=== PATIENT | male | born 1950 | race Caucasian/White ===

== ENCOUNTER 2017-08-17 12:50 | Emergency (ER) | payer OTHER, MEDICARE ==
[2017-08-17 12:59] VITALS: BP 180/112
[2017-08-17] MEDS ORDERED: DOXYcycline CAP(*) 100 MG PO ONE (13:09)
--- NOTE | 2017-08-17 13:36 | UC ---
General HPI - HPI Summary HPI Summary: TICK FOUND IN RIGHT ABDOMEN TODAY, BELIEVES IT HAS BEEN THERE SINCE YESTERDAY. NO FEVER. NO JOINT PAIN. NO HEDACHE. NO WEAKNESS. - History of Current Complaint Chief Complaint: Susie Stated Complaint: TICK Time Seen by Provider: 08/17/17 13:01 Hx Obtained From: Patient Onset/Duration: Gradual Onset, Lasting Hours Onset Severity: Mild Current Severity: Mild Pain Intensity: 0 Associated Signs & Symptoms: Negative: Abdominal Pain, Back Pain, Cough, Dizziness, Edema, Fever, Headache, SOB, Trauma - Allergy/Home Medications Allergies/Adverse Reactions: Allergies Allergy/AdvReac Type Severity Reaction Status Date / Time No Known Allergies Allergy Verified 09/06/15 13:12 Home Medications: Home Medications Donepezil Hydrochloride [Donepezil HCl] 5 mg PO 08/17/17 [History] PMH/Surg Hx/FS Hx/Imm Hx Previously Healthy: Yes - Surgical History Surgical History: Yes Surgery Procedure, Year, and Place: deep brain stimulation 02/2014 - Family History Known Family History: Negative: Blood Disorder - Social History Occupation: Retired Lives: With Family Alcohol Use: Occasionally Alcohol Amount: 3 GLASSES WINE/week Substance Use Type: None Smoking Status (MU): Never Smoked Tobacco - Immunization History Most Recent Tetanus Shot: 2013 Review of Systems Constitutional: Negative Skin: Rash Eyes: Negative ENT: Negative Respiratory: Negative Cardiovascular: Negative Gastrointestinal: Negative Genitourinary: Negative Motor: Negative Neurovascular: Negative Musculoskeletal: Negative Neurological: Negative Psychological: Negative Is Patient Immunocompromised?: No All Other Systems Reviewed And Are Negative: Yes Physical Exam Triage Information Reviewed: Yes Appearance: Well-Appearing, No Pain Distress, Well-Nourished Vital Signs: Initial Vital Signs Temp 98.0 F 08/17/17 12:56 Pulse 75 08/17/17 12:56 Resp 18 08/17/17 12:56 BP 180/112 08/17/17 12:56 Pulse Ox 100 08/17/17 12:56 Vital Signs Reviewed: Yes Eye Exam: Normal ENT Exam: Normal Dental Exam: Normal Neck exam: Normal Respiratory Exam: Normal Respiratory: Positive: Chest non-tender, Lungs clear, Normal breath sounds, No respiratory distress Cardiovascular Exam: Normal Cardiovascular: Positive: RRR, No Murmur, Pulses Normal Abdominal Exam: Normal Musculoskeletal Exam: Normal Neurological Exam: Normal Psychological Exam: Normal Skin: Positive: Other - TICK REMOVED FROM RIGHT ABDOMEN BY ROHIT, USING TICK TWISTERS. 0.3CM X 0.3 CM ERRYTHEMATOUS AREA WHERE TICK HAD BEEN EMBEDDED. Course/Dx - Differential Dx - Multi-Symptom Differential Diagnoses: Metabolic Abnormality, Sepsis Provider Diagnoses: TICK REMOVAL RIGHT ABDOMEN; TICK BITE PROPHYLAXIS. Discharge - Discharge Plan Condition: Stable Disposition: HOME Patient Education Materials: Lyme Disease (ED), Tick Bite (ED) Referrals: Jacob Richardson MD [Primary Care Provider] - Additional Instructions: TODAY YOUR BLOOD PRESSURE ON INTAKE WAS 180/112. PLEASE CONSULT YOUR PRIMARY CARE PHYSICIAN NEXT WEEK FOR EVALUATION OF THIS CONCERN.
== END 2017-08-17 13:23 | disposition home or self-care (01) ==
LOC: UCEAST 12:50
DX: S30.861A Insect bite (nonvenomous) of abdominal wall, initial encounter (principal); W57.XXXA Bitten or stung by nonvenomous insect and other nonvenomous arthropods, initial encounter; Y92.9 Unspecified place or not applicable
CPT/HCPCS: 99211; A9270-GY; G0463

== ENCOUNTER 2018-06-22 16:57 | Emergency (ER) | payer MEDICARE, OTHER ==
[2018-06-22] MEDS ORDERED: Acetaminophen TAB* 325 MG PO ONE (17:48)
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
[2018-06-22] MEDS ORDERED: Lisinopril TAB* 5 MG PO ONE (19:03)
[2018-06-22 19:53] VITALS: BP 165/109
--- NOTE | 2018-06-23 07:33 | RAD ---
INDICATION: Right clavicular pain /deformity COMPARISON: None TECHNIQUE: AP views were obtained. FINDINGS: There is a midshaft clavicular fracture with 60 degrees of angular deformity with the fracture apex directed cephalad. There are no other fractures. IMPRESSION: ANGULATED MID SHAFT CLAVICULAR FRACTURE. R0
--- NOTE | 2018-06-23 07:35 | RAD ---
INDICATION: Fall. Right arm pain COMPARISON: None TECHNIQUE: AP and lateral views were obtained. FINDINGS: The bony structures, joint spaces, and soft tissues are normal for age. IMPRESSION: NO ACUTE BONY FINDINGS. R0
== END 2018-06-22 19:50 | disposition home or self-care (01) ==
LOC: ED 16:57
DX: S42.021A Displaced fracture of shaft of right clavicle, initial encounter for closed fracture (principal); V19.9XXA Pedal cyclist (driver) (passenger) injured in unspecified traffic accident, initial encounter; Y93.55 Activity, bike riding; Y92.9 Unspecified place or not applicable
CPT/HCPCS: 99282; A9270-GY

== ENCOUNTER 2018-07-08 08:54 | Day surgery (SDC) | payer MEDICARE ==
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
[~2018-07-08 08:54] MED LIST: Buffered Lidocaine 0.9% SYRIN* 5 ML/SYR SYRINGE INTRADERM ONE; Dexamethasone IV* 4 MG/ML 1 ML (4 MG) IV SLOW PU ONE; Famotidine IV* 10 MG/ML 2 ML (20 mg) IV ONE
[2018-07-08] MEDS ORDERED: Famotidine IV* 10 MG/ML 2 ML (20 mg) ONE (09:06)
[2018-07-08] MEDS ORDERED: Dexamethasone IV* 4 MG/ML 1 ML (4 MG) ONE (09:06)
[2018-07-08] MEDS ORDERED: ceFAZolin 2 GM in NS PREMIX(*) 2 GM/100 ML BAG IVPB ONE (09:07)
[2018-07-08] MEDS ORDERED: fentaNYL* 50 MCG/ML 2 ML VIAL (100 MCG VIAL) IV PRN (09:30)
[2018-07-08] MEDS ORDERED: HYDROcodone/ACETAMIN 5-325 MG* 1 TAB PO PRN (09:30)
[2018-07-08] MEDS ORDERED: oxyCODONE/Acetamin 5/325 MG* TAB PO PRN (09:30)
[2018-07-08] MEDS ORDERED: Naloxone* 0.4 MG/ML 1 ML VIAL IV PRN (09:30)
[2018-07-08] MEDS ORDERED: Propofol* 10 MG/ML 20 ML BTL IV PUSH ONE (09:32)
[2018-07-08] MEDS ORDERED: Lidocaine 2% PF * 5 ML VIAL ONE (09:32)
[2018-07-08] MEDS ORDERED: Mivacurium Chloride* 20 MG/10 ML VIAL IV ONE (09:32)
[2018-07-08] MEDS ORDERED: fentaNYL* 50 MCG/ML 2 ML VIAL (100 MCG VIAL) ONE ×2 (09:46→10:44)
[2018-07-08] MEDS ORDERED: Bupivacaine 0.5% W/EPI SDV* 30 ML VIAL ONE (09:57)
[2018-07-08] MEDS ORDERED: Ketorolac INJ* 30 MG/ML 1 ML VIAL ONE (10:42)
[2018-07-08] MEDS ORDERED: Labetalol IV* 5 MG/ML 20 ML VIAL ONE (10:52)
[2018-07-08] MEDS ORDERED: Ondansetron INJ* 2 MG/ML VIAL ONE (11:08)
[2018-07-08 13:44] VITALS: BP 154/91
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
== END 2018-07-08 13:44 | disposition home or self-care (01) ==
LOC: OREAST 08:54
PROVIDERS: ATTEND Orthopaedic Surgery
DX: S42.021A Displaced fracture of shaft of right clavicle, initial encounter for closed fracture (principal); G20 Parkinson's disease; Z85.828 Personal history of other malignant neoplasm of skin; V18.0XXA Pedal cycle driver injured in noncollision transport accident in nontraffic accident, initial encounter; Y92.008 Other place in unspecified non-institutional (private) residence as the place of occurrence of the external cause
CPT/HCPCS: C1713; C1776; J0690; J1100; J1885; J2405; J2704; J3010

== ENCOUNTER 2020-01-13 09:47 | Emergency (ER) | payer MEDICARE ==
--- NOTE | 2020-01-13 10:25 | ED ---
Complex/Multi-Sys Presentation - HPI Summary HPI Summary: 69 year old M with hx Parkinson's and hypertension arriving via EMS to [facility] complains of sharp left rib pain rated 2/10 in severity that woke him from his sleep at 0200 this morning. No recent fall/trauma/injury. No hx similar symptoms. No hx chest pain. Patient denies chest pain, shortness of breath, cough. Symptoms aggravated by deep inspiration. Symptoms alleviated by nothing. He took Pepcid and aspirin prior to arrival. Medications reviewed. Allergies noted. FHx hypertension. - History Of Current Complaint Chief Complaint: EDGeneral Time Seen by Provider: 01/13/20 10:21 Hx Obtained From: Patient Onset/Duration: Lasting Hours - 8, Still Present Timing: Constant Severity Currently: Mild - 2/10 Aggravating Factor(s): Deep inspiration Alleviating Factor(s): Nothing Associated Signs And Symptoms: Positive: Other - NEG: chest pain, shortness of breath, cough - Allergies/Home Medications Allergies/Adverse Reactions: Allergies Allergy/AdvReac Type Severity Reaction Status Date / Time No Known Allergies Allergy Verified 01/13/20 10:01 Home Medications: Home Medications Donepezil HCl 5 mg PO BEDTIME 08/17/17 [History Confirmed 01/13/20] Carbidopa/Levodop 25/100 MG(*) [Sinemet 25/100 TAB(*)] 2 tab PO QID 07/04/18 [ History Confirmed 01/13/20] Atorvastatin* [Lipitor*] 40 mg PO DAILY 01/13/20 [History Confirmed 01/13/20] Fluorouracil [Carac] 1 applic TOPICAL DAILY 01/13/20 [History Confirmed 01/13/20 ] Lisinopril TAB* [Prinivil TAB*] 40 mg PO DAILY 01/13/20 [History Confirmed 01/12] Varicella-Zoster Ge/As01b/Pf [Shingrix] 50 mcg IM ONCE 01/13/20 [History Confirmed 01/13/20] PMH/Surg Hx/FS Hx/Imm Hx Endocrine/Hematology History: Denies: Hx Diabetes, Hx Thyroid Disease Cardiovascular History: Reports: Hx Hypertension, Other Cardiovascular Problems/ Disorders - stimulator Respiratory History: Denies: Hx Asthma, Hx Chronic Obstructive Pulmonary Disease (COPD) Sensory History: Reports: Hx Contacts or Glasses Opthamlomology History: Reports: Hx Contacts or Glasses Neurological History: Reports: Other Neuro Impairments/Disorders - PARKINSON'S DISEASE SINCE 2000 - Cancer History Cancer Type, Location and Year: skin - Surgical History Surgery Procedure, Year, and Place: 02/2014 deep brain stimulation [facility] Anesthesia Reactions: No - Immunization History Immunizations Up to Date: Yes Infectious Disease History: No Infectious Disease History: Denies: Hx Clostridium Difficile, Hx Hepatitis, Hx Human Immunodeficiency Virus (HIV), Hx of Known/Suspected MRSA, Hx Shingles, Hx Tuberculosis, Hx Known/ Suspected VRE, Hx Known/Suspected VRSA, History Other Infectious Disease, Traveled Outside the [place] in Last 30 Days - Family History Known Family History: Positive: Hypertension - Social History Alcohol Use: Weekly Alcohol Amount: 5 GLASSES WINE/week Hx Substance Use: No Substance Use Type: Reports: None Hx Tobacco Use: No Smoking Status (MU): Never Smoked Tobacco Have You Smoked in the Last Year: No Review of Systems Negative: Chest Pain Negative: Shortness Of Breath, Cough Positive: Other - left rib pain All Other Systems Reviewed And Are Negative: Yes Physical Exam - Summary Physical Exam Summary: Constitutional: Well-developed, Well-nourished, Alert. (-) Distressed Skin: Warm, Dry HENT: Normocephalic; Atraumatic Eyes: Conjunctiva normal Neck: Musculoskeletal ROM normal neck. (-) JVD, (-) Stridor, (-) Nuchal rigidity Cardio: Rhythm regular, rate normal, Heart sounds normal; Intact distal pulses; Radial pulses are 2+ and symmetric. (-) Murmur Pulmonary/Chest wall: Effort normal. (-) Respiratory distress, (-) Wheezes, (-) Rales Abd: Soft, (-) tenderness, (-) Distension, (-) Guarding, (-) Rebound Musculoskeletal: (-) Edema Lymph: (-) Cervical adenopathy Neuro: Alert, Oriented x3 Psych: Mood and affect Normal Triage Information Reviewed: Yes Vital Signs On Initial Exam: Initial Vitals Temp Pulse Resp BP Pulse Ox 98.3 F 86 20 188/121 99 01/13/20 09:55 01/13/20 09:55 01/13/20 09:55 01/13/20 09:55 01/13/20 09:55 Vital Signs Reviewed: Yes Procedures - Sedation Patient Received Moderate/Deep Sedation with Procedure: No Diagnostics - Vital Signs Vital Signs Temp Pulse Resp BP Pulse Ox 01/13/20 10:00 88 99 01/13/20 09:59 85 98 01/13/20 09:58 84 188/121 99 01/13/20 09:55 98.3 F 86 20 188/121 99 - Laboratory Result Diagrams: 01/13/20 11:04 01/13/20 11:04 Lab Statement: Any lab studies that have been ordered have been reviewed, and results considered in the medical decision making process. - Radiology CXR Radiology Interpretation Completed By: Radiologist - IMPRESSION: Chronic pleural changes. Right clavicle plate for internal fixation in place. ED physician has reviewed this imaging report. - EKG 1122 Cardiac Rate: NL - 81 BPM EKG Rhythm: Sinus Rhythm Summary of EKG Findings: An EKG at 1121 reveals normal sinus rhythm 81 BPM, nml axis, nml intervals. No STEMI. No acute changes. No prior to compare. ED physician has reviewed and interpreted this EKG. Re-Evaluation - Re-Evaluation First Eval Re-Evaluation Time: 14:00 Comment: second troponin 0.01. will d/c Complex Multi-Symp Course/Dx Course Of Treatment: 69 y/o male w hx Parkinson's, HTN p/w CP. - Chest Pain DDX : The patient is well appearing, with stable vitals. Given the patient's clinical presentation, highest on differential is atypical CP/pleuritic CP. Although less likely, differential also includes the following: --Pneumothorax : Equal breath sounds, story inconsistent since gradual onset of symptoms. CXR shows no evidence of pneumothorax. Unlikely. --Cardiac tamponade: The history and physical are not concerning for tamponade. No Pulsus Paradoxus, no tachypnea. Unlikely. --Mediastinitis or esophageal rupture: The history is not consistent, as the patient has had no recent history of significant wretching, instrumentation, or mediastinal surgeries. Unlikely. --Aortic dissection: The patient does not describe the classical tearing chest pain radiating into the back, and the CXR does not show mediastinal widening or other signs of aortic dissection. Unlikely. --PE: Vitals wnl (not hypoxic, tachycardic or tachypneic) . Wells low risk, d dimer negative. --ACS: The initial EKG shows no ischemic changes. The initial troponin is not elevated x2. Heart score: 3, low risk - Diagnoses Provider Diagnoses: Pleuritic chest pain, Hypertension Discharge ED - Sign-Out/Discharge Documenting (check all that apply): Patient Departure - Discharge Plan Condition: Stable Disposition: HOME Patient Education Materials: Chest Pain (ED), Pleurisy (ED) Referrals: Jacob Richardson MD [Primary Care Provider] - Additional Instructions: You were seen in the emergency department for chest pain. Your EKG (heart tracing), labs and chest x-ray did not show any cause for pain. Important that you follow up with you primary care doctor in the next 1-2 days to help schedule an outpatient stress test. Please return to the emergency department for continued chest pain, trouble breathing, passing out, or if you're concerned. - Billing Disposition and Condition Condition: STABLE Disposition: Home - Attestation Statements Document Initiated by Porfirio: Yes Documenting Scribe: Susan Dc Provider For Whom Porfirio is Documenting (Include Credential): Hailee Boston MD Scribe Attestation: Susan Ray, scribed for Hailee Boston MD on 01/13/20 at 1530. Scribe Documentation Reviewed: Yes Provider Attestation: The documentation as recorded by the Susan melton accurately reflects the service I personally performed and the decisions made by , Hailee Boston MD Status of Scribe Document: Viewed
--- OUTSIDE RECORDS SUMMARY | 2020-01-13 10:44 | XMS REPORT | Continuity of Care Document ---
:1950 External Reference #:[id number] Author Name Jacob Mora M.D. 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 Onset: 06/14/2015 Encounter for adjustment and management of Chino Wang M.D. Onset: 08/2019 neurostimulator Social History Type Date Description Comments Sex Unknown Tobacco Use Start: Unknown Never Smoked Cigarettes Smoking Status Reviewed: 11/18/19 Never Smoked Cigarettes ETOH Use consumes 1-2 glasses of wine per day Tobacco Use Start: Unknown Patient has never smoked Recreational Drug Use Denies Drug Use Exercise Type/Frequency Exercises rarely Allergies, Adverse Reactions, Alerts Description No Known Drug Allergies Medications Active Medications SIG Qnty Indications Ordering Provider Date Donepezil HCL take one tablet 90tabs G31.84 Jacob Mora, 06/12/2017 5mg by mouth once M.D. Tablets daily Sinemet 2 tabs by mouth 540tabs Rafal Harper, 08/29/2012 25-100mg 3 times a day N.P. Tablets Mucinex D 1 po bid prn 60tabs Unknown 60-600mg Tablets ER 12HR Tylenol 2 tablets every Unknown 325mg Capsules 4 hours as needed for pain Atorvastatin Calcium Once daily Jacob Richardson MD 40mg Tablets Lisinopril 1 by mouth every Unknown 40mg Tablets day Immunizations Description No Information Available Vital Signs Date Vital Result Comment 11/18/2019 10:47am Height 71 inches 5'11" Weight 168.00 lb Heart Rate 72 /min BP Systolic 124 mmHg BP Diastolic 82 mmHg BMI (Body Mass Index) 23.4 kg/m2 08/07/2019 3:36pm Height 71 inches 5'11" Weight 168.00 lb Heart Rate 78 /min BP Systolic 122 mmHg BP Diastolic 86 mmHg BMI (Body Mass Index) 23.4 kg/m2 Results Description No Information Available Procedures Date Code Description Status 08/07/2019 09057 Neurostimulator Pulse Generator Analysis W/O Reprogramming Completed Medical Devices Description No Information Available Encounters Description No Information Available Assessments Date Code Description Provider 11/18/2019 G20 Parkinson's disease Jacob Mora M.D. 11/18/2019 G31.84 Mild cognitive impairment, so stated Jacob Mora M.D. 08/07/2019 G20 Parkinson's disease Chino Wang M.D. 08/07/2019 Z45.42 Encounter for adjustment and management of Chino Wang M.D. neurostimulator Plan of Treatment Future Appointment(s):05/18/2020 3:45 pm - Jacob Mora M.D. at [facility]08/05/2020 2:30 pm - Chino Wang M.D. at [facility]11/18/2019 - Jacob Mora M.D.G20 Parkinson's diseaseFollow up:6 hfiombI31.84 Mild cognitive impairment, so stated Functional Status Description No Information Available Mental Status Description No Information Available Referrals Description No Information Available
[2020-01-13 11:10] LABS: ABS Eosinophils 0.1 10^3/ul (0-0.6); ABS Lymphocytes 0.8 10^3/ul (1.0-4.8); ABS Monocytes 1.1 10^3/ul (0-0.8); ABS Neutrophils 6.6 10^3/ul (1.5-7.7); Eosinophil % 0.9 %; Hematocrit 43 % (42-52); Hemoglobin 14.5 g/dL (14.0-18.0); Mean Corpuscular HGB Conc 34 g/dL (31-36); Mean Corpuscular Hemoglobin 32 pg (27-31); Mean Corpuscular Volume 94 fL (80-94); Mean Platelet Volume 8.7 fL (7.4-10.4); Platelet Count 177 10^3/uL (150-450); Red Blood Count 4.56 10^6 /uL (4.18-5.48); Red Cell Distribution Width 14 % (10-15); White Blood Count 8.5 10^3/uL (3.5-10.8)
[2020-01-13 11:27] LABS: Albumin 4.2 g/dL (3.2-5.2); BUN/Creatinine Ratio 16.3 (8-20); Calcium 8.9 mg/dL (8.6-10.3); EGFR Non-African American 76.1 (>60); Globulin 2.1 g/dL (2-4); Potassium 3.9 mmol/L (3.5-5.0); Total Bilirubin 0.9 mg/dL (0.2-1.0); Total Protein 6.3 g/dL (6.4-8.9)
[2020-01-13 11:29] LABS: Troponin I 0.01 ng/mL (<0.03)
[2020-01-13] MEDS: Aspirin 81 mg CHEW TAB* 81 MG TAB.CHEW PO ONE (11:33)
[2020-01-13 15:04] VITALS: BP 178/116
== END 2020-01-13 15:03 | disposition home or self-care (01) ==
LOC: ED 09:47
DX: R07.81 Pleurodynia (principal); I10 Essential (primary) hypertension; G20 Parkinson's disease; Z85.828 Personal history of other malignant neoplasm of skin; Z79.899 Other long term (current) drug therapy
CPT/HCPCS: 36415; 71046; 80053; 84484; 85025; 85379; 93005; 99283